=== PATIENT | male | born 2000 | race Caucasian/White ===

== ENCOUNTER 2024-06-18 13:54 | Emergency (ER) | payer BC ==
[~2024-06-18] VITALS: Ht 180.3 cm; Wt 73.0 kg
[2024-06-18 13:57] VITALS: O2SAT 96
[2024-06-18 14:10] VITALS: BP 137/88; PULSE 70; RESP 18; TEMP 37.1; O2SAT 99
[2024-06-18 14:48] VITALS: TEMP 98.7
[2024-06-18] MEDS: ACETAMINOPHEN 325MG TABLET PO ONE (14:48)
== END 2024-06-18 15:45 | disposition home or self-care (01) ==
LOC: ER 13:54
DX: M25.512 Pain in left shoulder (principal)
CPT/HCPCS: 73030; 99283